=== PATIENT | male | born 1960 | race Caucasian/White ===

== ENCOUNTER → 2018-03-25 | Emergency (ER) | payer OTHER ==
[~2018-03-25] VITALS: Ht 190.5 cm; Wt 117.9 kg
[~2018-03-25] MED LIST: ATENOLOL25 MG; COZAAR50 MG; DESLORATADINE5 MG; FORTAMET500 MG; METFORMIN HCL500 MG; OMEPRAZOLE20 MG; PANADOL EXTRA500 MG; PRUNELAX; SIMVASTATIN20 MG; SYNTHROID100 MCG
== END | disposition left against medical advice (07) ==
LOC: ER 03:50
DX: F06.4 Anxiety disorder due to known physiological condition (principal); G47.09 Other insomnia